=== PATIENT | female | born 1965 | race African-American/Black ===

== ENCOUNTER 2017-03-03 18:52 | Emergency (ER) | payer MEDICAID, OTHER ==
[~2017-03-03] VITALS: Ht 165.1 cm; Wt 69.0 kg
[2017-03-03] MEDS ORDERED: ONDANSETRON HCL 4MG/2ML VIAL IV STA (19:43)
[2017-03-03] MEDS ORDERED: MORPHINE SULFATE 4 MG/ML CPJ (NOT FOR IM USE) IV STA (19:43)
[2017-03-03] MEDS ORDERED: SODIUM CHLORIDE 0.9% 1,000 ML IV ONE (19:43)
[2017-03-03 20:18] LABS: BASOPHILS % 0.9 % (0.0-2.0); EOSINOPHILS % 0.1 % (0.0-5.0); HEMATOCRIT. 35.8 % (36.0-48.0); HEMOGLOBIN. 12.7 g/dL (12.0-16.0); LYMPHOCYTES % 14.7 % (20.0-50.0); MEAN CORPUSCULAR VOLUME 84.5 fL (81.0-99.0); MEAN PLATELET VOLUME 6.7 fl (7.4-10.4); MONOCYTES % 4.6 % (2.0-8.0); NEUTROPHILS % 79.7 % (40.0-76.0); PLATELET 352 x1000/uL (130-400); RED BLOOD CELL COUNT 4.24 mill/uL (4.2-5.4); RED CELL DISTRIBUTION WIDTH 12.9 % (11.6-14.6)
[2017-03-03 20:23] LABS: CHLORIDE 106 mEq/L (98-107)
[2017-03-03 20:27] LABS: CARBON DIOXIDE 21 mEq/L (21-32); INR 1.1; PROTHROMBIN TIME 11.7 sec (9.4-11.6)
[2017-03-03 20:32] LABS: HCG SCREEN NEGATIVE
[2017-03-03 21:29] LABS: CLARITY URINE TURBID (CLEAR); COLOR URINE YELLOW (YELLOW); GLUCOSE URINE NEGATIVE (NEGATIVE); KETONES URINE 1+ (NEGATIVE); LEUKOCYTE ESTERASE URINE TRACE (NEGATIVE); NITRITE URINE NEGATIVE (NEGATIVE); OCCULT BLOOD URINE 3+ (NEGATIVE); PH URINE >=9.0 (4.5-8.0); PROTEIN URINE 3+ (NEGATIVE); SPECIFIC GRAVITY URINE 1.021 (1.005-1.030)
[2017-03-03] MEDS ORDERED: CEFTRIAXONE 1 G PREMIX 50 ML IV ONE (22:00)
[2017-03-03] MEDS ORDERED: ONDANSETRON HCL 4MG/2ML VIAL IV ONE (22:15)
[2017-03-03] MEDS ORDERED: KETOROLAC 30MG/ML VIAL IV ONE (22:45)
[2017-03-04] MEDS ORDERED: METOCLOPRAMIDE HCL 10MG/2ML VIAL IV ONE (00:30)
[2017-03-04 00:44] VITALS: BP 152/82
== END 2017-03-04 01:29 | disposition home or self-care (01) ==
LOC: ER 19:48
DX: N39.0 Urinary tract infection, site not specified (principal)
CPT/HCPCS: 36415; 74176; 80053; 81001; 83690; 84703; 85025; 85610; 93005; 96361; 96365; 96375; 99285; J0696; J1885; J2270; J2405; J2765; J7030; Z7610

== ENCOUNTER 2017-03-05 03:07 | Inpatient (IN) | payer OTHER, MEDICAID ==
[~2017-03-05] VITALS: Ht 154.9 cm; Wt 65.8 kg
[2017-03-05] MEDS ORDERED: SODIUM CHLORIDE 0.9% 1,000 ML IV ONE (07:10)
[2017-03-05] MEDS ORDERED: ONDANSETRON HCL 4MG/2ML VIAL IV STA (07:10)
[2017-03-05] MEDS ORDERED: KETOROLAC 30MG/ML VIAL IV STA (07:10)
[2017-03-05] MEDS ORDERED: FAMOTIDINE 20MG/2ML VIAL IV STA (07:10)
[2017-03-05 07:29] LABS: BASOPHILS % 0.2 % (0.0-2.0); HEMATOCRIT. 33.6 % (36.0-48.0); HEMOGLOBIN. 12.1 g/dL (12.0-16.0); MEAN CORPUSCULAR HEMOGLOBIN 29.7 pg (28.0-32.0); MEAN CORPUSCULAR VOLUME 82.7 fL (81.0-99.0); MEAN PLATELET VOLUME 6.8 fl (7.4-10.4); MONOCYTES % 9.6 % (2.0-8.0); NEUTROPHILS % 78.2 % (40.0-76.0); PLATELET 294 x1000/uL (130-400); RED BLOOD CELL COUNT 4.06 mill/uL (4.2-5.4); RED CELL DISTRIBUTION WIDTH 12.9 % (11.6-14.6)
[2017-03-05 07:34] LABS: INR 1.2
[2017-03-05 07:52] LABS: CARBON DIOXIDE 28 mEq/L (21-32); CHLORIDE 99 mEq/L (98-107)
[2017-03-05] MEDS ORDERED: MORPHINE SULFATE 4 MG/ML CPJ (NOT FOR IM USE) IV ONE (08:45)
[2017-03-05 09:14] LABS: CLARITY URINE CLOUDY (CLEAR); COLOR URINE DARK YELLOW (YELLOW); GLUCOSE URINE NEGATIVE (NEGATIVE); KETONES URINE TRACE (NEGATIVE); LEUKOCYTE ESTERASE URINE TRACE (NEGATIVE); NITRITE URINE NEGATIVE (NEGATIVE); OCCULT BLOOD URINE 3+ (NEGATIVE); PROTEIN URINE 4+ (NEGATIVE); SPECIFIC GRAVITY URINE 1.027 (1.005-1.030)
[2017-03-05 09:22] LABS: HCG SCREEN NEGATIVE
[2017-03-05 09:35] LABS: *AMPHETAMINES SCREEN URINE NEGATIVE (NEGATIVE); *BARBITURATES SCREEN URINE NEGATIVE (NEGATIVE); *BENZODIAZEPINES SCREEN URINE NEGATIVE (NEGATIVE); *COCAINE SCREEN URINE NEGATIVE (NEGATIVE); METHADONE URINE SCREEN NEGATIVE (NEGATIVE); PHENCYCLIDINE URINE SCREEN NEGATIVE (NEGATIVE)
[2017-03-05] MEDS ORDERED: SODIUM CHLORIDE 0.9% 1,000 ML IV SCH (09:35)
[2017-03-05 09:39] LABS: CANNABINOID URINE SCREEN PRESUMTIVE POSITIVE (NEGATIVE); OPIATES URINE SCREEN PRESUMTIVE POSITIVE (NEGATIVE)
[2017-03-05] MEDS ORDERED: KCL 10MEQ/50ML PREMIX 100 ML IV SCH (09:45)
[2017-03-05] MEDS ORDERED: ONDANSETRON HCL 4MG/2ML VIAL IV PRN (11:30)
[2017-03-05] MEDS ORDERED: CLONIDINE 0.1MG TABLET PO PRN (11:30)
[2017-03-05] MEDS ORDERED: HYDROCODONE/ACETAMINOPHEN 5/325MG TABLET PO PRN (11:30)
[2017-03-05] MEDS ORDERED: ACETAMINOPHEN 325MG TABLET PO PRN (11:30)
[2017-03-05] MEDS ORDERED: IPRATROPIUM/ALBUTEROL 0.5-3(2.5)MG/3ML NEB INH PRN (11:30)
[2017-03-05 12:00] VITALS: BP 149/90
[2017-03-05 14:23] VITALS: BP 149/90
[2017-03-05 20:00] VITALS: BP 126/69
[2017-03-05] MEDS ORDERED: ENOXAPARIN 40MG/0.4ML SYR SUBCUT SCH (22:00)
[2017-03-06] VITALS: BP 116/64
[2017-03-06 04:15] VITALS: BP 125/67
[2017-03-06 07:07] LABS: BASOPHILS % 0.4 % (0.0-2.0); EOSINOPHILS % 0.4 % (0.0-5.0); HEMATOCRIT. 33.1 % (36.0-48.0); HEMOGLOBIN. 11.4 g/dL (12.0-16.0); LYMPHOCYTES % 34.6 % (20.0-50.0); MEAN CORPUSCULAR HEMOGLOBIN 29.5 pg (28.0-32.0); MEAN CORPUSCULAR VOLUME 85.3 fL (81.0-99.0); MEAN PLATELET VOLUME 7.1 fl (7.4-10.4); MONOCYTES % 11.5 % (2.0-8.0); NEUTROPHILS % 53.1 % (40.0-76.0); PLATELET 272 x1000/uL (130-400); RED BLOOD CELL COUNT 3.87 mill/uL (4.2-5.4)
[2017-03-06 07:45] LABS: CARBON DIOXIDE 29 mEq/L (21-32); CHLORIDE 102 mEq/L (98-107); HDL CHOLESTEROL 34 mg/dL (40-59); LDL CHOLESTEROL 101 mg/dL (5-100)
[2017-03-06 08:00] VITALS: BP 129/71
[2017-03-06 11:39] VITALS: BP 122/67
[2017-03-06 16:00] VITALS: BP 121/79
[2017-03-06 17:15] VITALS: BP 121/79
[2017-03-06] MEDS ORDERED: POTASSIUM CHLORIDE 20MEQ TABLET SR PO NR (17:15)
== END 2017-03-06 17:30 | disposition home or self-care (01) | DRG 249 ==
LOC: ER 03:07 → 6WST 09:20 → EDBEDREQSVC 09:44 → ENRESERV 09:58
PROVIDERS: ADMIT Internal Medicine; ATTEND Internal Medicine
DX: A08.4 Viral intestinal infection, unspecified (principal); E87.2 Acidosis; R10.9 Unspecified abdominal pain; E78.5 Hyperlipidemia, unspecified; R00.1 Bradycardia, unspecified; E87.6 Hypokalemia; F17.210 Nicotine dependence, cigarettes, uncomplicated; F12.90 Cannabis use, unspecified, uncomplicated; D72.829 Elevated white blood cell count, unspecified; R11.2 Nausea with vomiting, unspecified
CPT/HCPCS: 36415; 74022; 76705; 80053; 80061; 80305; 81001; 81025; 83605; 83690; 83735; 84443; 84703; 85025; 85610; 87040; 87086; 93005; 93306; 93970; 96361; 96374; 96375; 99285; J1650; J1885; J2270; J2405; J3480; J3490; J7030; J7050

== ENCOUNTER 2017-09-14 19:55 | Emergency (ER) | payer OTHER, MEDICAID ==
[~2017-09-14] VITALS: Ht 154.9 cm; Wt 65.0 kg
[2017-09-14] MEDS ORDERED: ASPIRIN 81MG TABLET PO ONE ×2 (22:30→23:00)
[2017-09-14 22:38] LABS: BASOPHILS % 0.8 % (0.0-2.0); EOSINOPHILS % 0.4 % (0.0-5.0); HEMATOCRIT. 35.9 % (36.0-48.0); HEMOGLOBIN. 12.7 g/dL (12.0-16.0); LYMPHOCYTES % 16.9 % (20.0-50.0); MEAN CORPUSCULAR HEMOGLOBIN 30.4 pg (28.0-32.0); MEAN CORPUSCULAR VOLUME 85.7 fL (81.0-99.0); MEAN PLATELET VOLUME 6.5 fl (7.4-10.4); MONOCYTES % 7.3 % (2.0-8.0); NEUTROPHILS % 74.6 % (40.0-76.0); PLATELET 344 x1000/uL (130-400); RED BLOOD CELL COUNT 4.18 mill/uL (4.2-5.4); RED CELL DISTRIBUTION WIDTH 12.8 % (11.6-14.6)
[2017-09-14 22:45] LABS: INR 1.1; PROTHROMBIN TIME 11.2 sec (9.4-11.6)
[2017-09-14 22:48] LABS: CHLORIDE 109 mEq/L (98-107); ETHANOL BLOOD < 10 mg/dL
[2017-09-14] MEDS ORDERED: NITROGLYCERIN 0.4MG TABLET SL SL ONE (23:00)
[2017-09-14] MEDS ORDERED: VISCOUS LIDOCAINE 2% 15 ML UDC MM NR (23:46)
[2017-09-15] MEDS ORDERED: MAGNESIUM/ALUMINUM HYDROXIDE/SIMETHICONE 30ML UDC PO NR
[2017-09-15 01:55] VITALS: BP 122/71
== END 2017-09-15 01:55 | disposition home or self-care (01) ==
LOC: ER 20:56
DX: R07.9 Chest pain, unspecified (principal); F17.200 Nicotine dependence, unspecified, uncomplicated; F14.10 Cocaine abuse, uncomplicated; Z79.82 Long term (current) use of aspirin
CPT/HCPCS: 36415; 71045; 80053; 83690; 83880; 84484; 85025; 85379; 85610; 99285; G0482; Z7610

== ENCOUNTER 2018-02-20 22:49 | Emergency (ER) | payer OTHER, MEDICAID ==
[~2018-02-20] VITALS: Ht 154.9 cm; Wt 61.0 kg
[2018-02-20] MEDS ORDERED: ONDANSETRON HCL 4MG/2ML VIAL IV STA (23:38)
[2018-02-20] MEDS ORDERED: MORPHINE SULFATE 4 MG/ML CPJ (NOT FOR IM USE) IV STA (23:38)
[2018-02-20] MEDS ORDERED: ASPIRIN 81MG TABLET PO ONE (23:45)
[2018-02-21 00:14] LABS: BASOPHILS % 0.6 % (0.0-2.0); EOSINOPHILS % 1.2 % (0.0-5.0); HEMATOCRIT. 33.3 % (36.0-48.0); HEMOGLOBIN. 11.8 g/dL (12.0-16.0); LYMPHOCYTES % 32.4 % (20.0-50.0); MEAN CORPUSCULAR HEMOGLOBIN 30.6 pg (28.0-32.0); MEAN CORPUSCULAR VOLUME 86.6 fL (81.0-99.0); MEAN PLATELET VOLUME 6.7 fl (7.4-10.4); MONOCYTES % 9.6 % (2.0-8.0); NEUTROPHILS % 56.2 % (40.0-76.0); PLATELET 290 x1000/uL (130-400); RED BLOOD CELL COUNT 3.84 mill/uL (4.2-5.4); RED CELL DISTRIBUTION WIDTH 13.2 % (11.6-14.6)
[2018-02-21 00:21] LABS: CHLORIDE 109 mEq/L (98-107)
[2018-02-21 00:25] LABS: ETHANOL BLOOD < 10 mg/dL
[2018-02-21 00:26] LABS: HCG SCREEN NEGATIVE
[2018-02-21 00:30] LABS: D-DIMER 0.2 mg/L FEU (<0.50); INR 1.1; PARTIAL THROMBOPLASTIN TIME 26.1 sec (23.4-31.0); PROTHROMBIN TIME 11.3 sec (9.1-11.1)
[2018-02-21 01:06] LABS: CLARITY URINE CLEAR (CLEAR); COLOR URINE YELLOW (YELLOW); KETONES URINE NEGATIVE (NEGATIVE); LEUKOCYTE ESTERASE URINE NEGATIVE (NEGATIVE); NITRITE URINE NEGATIVE (NEGATIVE); OCCULT BLOOD URINE 2+ (NEGATIVE); PH URINE 5.5 (4.5-8.0); PROTEIN URINE NEGATIVE (NEGATIVE); SPECIFIC GRAVITY URINE 1.002 (1.005-1.030); UROBILINOGEN URINE 0.2 E.U./dL (0.2-1.0)
[2018-02-21 01:34] LABS: *AMPHETAMINES SCREEN URINE NEGATIVE (NEGATIVE); *BARBITURATES SCREEN URINE NEGATIVE (NEGATIVE); *BENZODIAZEPINES SCREEN URINE NEGATIVE (NEGATIVE); CANNABINOID URINE SCREEN PRESUMTIVE POSITIVE (NEGATIVE); METHADONE URINE SCREEN NEGATIVE (NEGATIVE); OPIATES URINE SCREEN NEGATIVE (NEGATIVE); PHENCYCLIDINE URINE SCREEN NEGATIVE (NEGATIVE)
[2018-02-21 01:35] LABS: *COCAINE SCREEN URINE NEGATIVE (NEGATIVE)
[2018-02-21 02:17] VITALS: BP 134/72
== END 2018-02-21 02:22 | disposition home or self-care (01) ==
LOC: ER 22:49 → CANBEDREQ 02-21 07:17
DX: R07.89 Other chest pain (principal); K21.9 Gastro-esophageal reflux disease without esophagitis; F17.200 Nicotine dependence, unspecified, uncomplicated; I20.9 Angina pectoris, unspecified
CPT/HCPCS: 36415; 71045; 80053; 80305; 81003; 83690; 83880; 84484; 84703; 85025; 85379; 85610; 85730; 93005; 96374; 96375; 99285; 99406; C1893; G0482; J2270; J2405; Z7610

== ENCOUNTER 2018-08-13 11:42 | Inpatient (IN) | payer MEDICAID ==
[~2018-08-13] VITALS: Ht 154.9 cm; Wt 61.2 kg
[~2018-08-13 11:42] MED LIST: ALBU18HF2 IH; ASPI-1159 MT; FAMO-135 MT; FLUT15.88 BOTHNSTRLS; IBUP-2029 MT; NAPR-681 MT
[2018-08-13] MEDS ORDERED: NITROGLYCERIN 0.4MG TABLET SL SL PRN (15:45)
[2018-08-13] MEDS ORDERED: ASPIRIN 81MG TABLET PO ONE (15:45)
[2018-08-13 16:18] LABS: BASOPHILS % 0.7 % (0.0-2.0); CHLORIDE 106 mEq/L (98-107); EOSINOPHILS % 0.6 % (0.0-5.0); HEMATOCRIT. 36.1 % (36.0-48.0); HEMOGLOBIN. 12.6 g/dL (12.0-16.0); LYMPHOCYTES % 35.5 % (20.0-50.0); MEAN CORPUSCULAR HEMOGLOBIN 30.3 pg (28.0-32.0); MEAN CORPUSCULAR VOLUME 87.2 fL (81.0-99.0); MEAN PLATELET VOLUME 7.1 fl (7.4-10.4); MONOCYTES % 8.3 % (2.0-8.0); NEUTROPHILS % 54.9 % (40.0-76.0); PLATELET 320 x1000/uL (130-400); RED BLOOD CELL COUNT 4.14 mill/uL (4.2-5.4); RED CELL DISTRIBUTION WIDTH 13.1 % (11.6-14.6)
[2018-08-13 16:23] LABS: D-DIMER 0.32 mg/L FEU (<0.50); INR 1.1; PARTIAL THROMBOPLASTIN TIME 25.7 sec (23.4-31.0); PROTHROMBIN TIME 11.4 sec (9.1-11.1)
[2018-08-13 16:30] LABS: HCG SCREEN NEGATIVE
[2018-08-13] MEDS ORDERED: POTASSIUM CHLORIDE 20MEQ TABLET SR PO ONE (17:00)
[2018-08-13] MEDS ORDERED: IPRATROPIUM/ALBUTEROL 0.5-3(2.5)MG/3ML NEB INH PRN (18:15)
[2018-08-13] MEDS ORDERED: DOCUSATE SODIUM 100MG CAPSULE PO PRN (18:15)
[2018-08-13] MEDS ORDERED: HYDROCODONE/ACETAMINOPHEN 5/325MG TABLET PO PRN (18:15)
[2018-08-13] MEDS ORDERED: ONDANSETRON HCL 4MG/2ML INJ IV PRN (18:15)
[2018-08-13] MEDS ORDERED: CLONIDINE 0.1MG TABLET PO PRN (18:15)
[2018-08-13] MEDS ORDERED: ACETAMINOPHEN 325MG TABLET PO PRN (18:15)
[2018-08-13 19:34] LABS: CREATINE KINASE 198 IU/L (26-192)
[2018-08-13 19:35] LABS: CREATINE KINASE MB FRACTION < 1.0 ng/mL (0.5-3.6)
[2018-08-13 19:44] LABS: CLARITY URINE CLEAR (CLEAR); COLOR URINE YELLOW (YELLOW); KETONES URINE NEGATIVE (NEGATIVE); LEUKOCYTE ESTERASE URINE NEGATIVE (NEGATIVE); NITRITE URINE NEGATIVE (NEGATIVE); OCCULT BLOOD URINE 2+ (NEGATIVE); PH URINE 6.5 (4.5-8.0); PROTEIN URINE 1+ (NEGATIVE); SPECIFIC GRAVITY URINE 1.005 (1.005-1.030)
[2018-08-13 20:01] LABS: METHADONE URINE SCREEN NEGATIVE (NEGATIVE)
[2018-08-13 20:02] LABS: *AMPHETAMINES SCREEN URINE NEGATIVE (NEGATIVE); *BARBITURATES SCREEN URINE NEGATIVE (NEGATIVE); *BENZODIAZEPINES SCREEN URINE NEGATIVE (NEGATIVE); *COCAINE SCREEN URINE NEGATIVE (NEGATIVE); CANNABINOID URINE SCREEN PRESUMTIVE POSITIVE (NEGATIVE); OPIATES URINE SCREEN NEGATIVE (NEGATIVE); PHENCYCLIDINE URINE SCREEN NEGATIVE (NEGATIVE)
[2018-08-14 04:50] VITALS: BP 143/88
[2018-08-14 05:30] VITALS: BP 143/88
[2018-08-14] MEDS ORDERED: ATOR20TA65 PO (05:36)
[2018-08-14] MEDS ORDERED: LORA10TA7 PO (05:37)
[2018-08-14] MEDS ORDERED: ACET-2853 PO (05:39)
[2018-08-14] MEDS ORDERED: NITR0.4T49 SL (05:40)
[2018-08-14 08:00] VITALS: BP 137/89
[2018-08-14] MEDS ORDERED: FERROUS SULFATE 325MG TABLET PO SCH (09:00)
[2018-08-14] MEDS ORDERED: REGADENOSON 0.4 MG/5 ML IV NR (09:30)
[2018-08-14] MEDS ORDERED: LORATADINE 10MG TABLET PO PRN (10:15)
[2018-08-14] MEDS ORDERED: ASPIRIN 81MG TABLET PO SCH (10:45)
[2018-08-14] MEDS ORDERED: PANTOPRAZOLE SODIUM 40 MG/VIAL IV SCH (10:45)
[2018-08-14] MEDS ORDERED: ATORVASTATIN CALCIUM 20MG TABLET PO SCH (10:45)
[2018-08-14 12:00] VITALS: BP 153/84
[2018-08-14 14:27] LABS: BASOPHILS % 0.6 % (0.0-2.0); EOSINOPHILS % 1.6 % (0.0-5.0); HEMATOCRIT. 35.2 % (36.0-48.0); HEMOGLOBIN. 12.2 g/dL (12.0-16.0); LYMPHOCYTES % 39.9 % (20.0-50.0); MEAN CORPUSCULAR HEMOGLOBIN 30.7 pg (28.0-32.0); MEAN CORPUSCULAR VOLUME 88.3 fL (81.0-99.0); MEAN PLATELET VOLUME 6.9 fl (7.4-10.4); MONOCYTES % 9.9 % (2.0-8.0); PLATELET 302 x1000/uL (130-400); RED BLOOD CELL COUNT 3.98 mill/uL (4.2-5.4); RED CELL DISTRIBUTION WIDTH 13.6 % (11.6-14.6)
[2018-08-14 14:35] LABS: CHLORIDE 109 mEq/L (98-107)
[2018-08-14 14:45] LABS: T4 FREE 0.82 ng/dL (0.76-1.46)
[2018-08-14] MEDS ORDERED: PANT40TA4 MT (15:10)
[2018-08-14] MEDS ORDERED: FERR325T6 MT (15:10)
[2018-08-14] MEDS ORDERED: POTASSIUM CHLORIDE 20MEQ TABLET SR PO NR (15:15)
[2018-08-14 17:56] VITALS: BP 142/78
== END 2018-08-14 18:45 | disposition home or self-care (01) | DRG 243 ==
LOC: ER 15:16 → 5WST 17:20 → EDBEDREQ 17:22 → EDBEDREQTM 17:22 → EDBEDREQ 17:25 → ENRESERV 08-14 04:08
PROVIDERS: ADMIT Internal Medicine; ATTEND Internal Medicine
DX: K21.9 Gastro-esophageal reflux disease without esophagitis (principal); E78.5 Hyperlipidemia, unspecified; F12.90 Cannabis use, unspecified, uncomplicated; I10 Essential (primary) hypertension; R80.9 Proteinuria, unspecified; F17.210 Nicotine dependence, cigarettes, uncomplicated; Z79.82 Long term (current) use of aspirin; Z82.49 Family history of ischemic heart disease and other diseases of the circulatory system; Z79.899 Other long term (current) drug therapy; Z71.6 Tobacco abuse counseling
CPT/HCPCS: 36415; 71045; 80048; 80061; 80305; 82550; 82553; 83036; 83880; 84439; 84443; 84484; 84703; 85379; 93005; 93306; 93970; 99285; C9113

== ENCOUNTER 2018-10-29 20:54 | Inpatient (IN) | payer MEDICAID ==
[~2018-10-29] VITALS: Ht 157.5 cm; Wt 62.6 kg
[~2018-10-29 20:54] MED LIST changes: +ACET-2853 PO; -ALBU18HF2 IH; +ATOR20TA65 PO; -FAMO-135 MT; +FERR325T6 MT; -FLUT15.88 BOTHNSTRLS; -IBUP-2029 MT; +LORA10TA7 PO; -NAPR-681 MT; +NITR0.4T49 SL; +PANT40TA4 MT
[2018-10-29] MEDS ORDERED: ASPIRIN 325MG EC TABLET PO ONE (21:45)
[2018-10-29] MEDS ORDERED: NITROGLYCERIN OINT 1GM/INCH UDPKT TD ONE (21:45)
[2018-10-29 22:45] LABS: CHLORIDE 111 mEq/L (98-107)
[2018-10-29 22:46] LABS: INR 1.1; PROTHROMBIN TIME 11.4 sec (9.6-11.0)
[2018-10-29 22:47] LABS: BASOPHILS % 0.7 % (0.0-2.0); EOSINOPHILS % 1.4 % (0.0-5.0); HCG SCREEN NEGATIVE; HEMATOCRIT. 35.9 % (36.0-48.0); HEMOGLOBIN. 12.6 g/dL (12.0-16.0); LYMPHOCYTES % 30.8 % (20.0-50.0); MEAN CORPUSCULAR HEMOGLOBIN 30.6 pg (28.0-32.0); MONOCYTES % 9.2 % (2.0-8.0); NEUTROPHILS % 57.9 % (40.0-76.0); PLATELET 303 x1000/uL (130-400); RED BLOOD CELL COUNT 4.13 mill/uL (4.2-5.4)
[2018-10-30 03:30] VITALS: BP_SYST 130; BP_SYST 159; BP_DIAS 70; BP_DIAS 84
[2018-10-30] MEDS ORDERED: MORPHINE SULFATE 4 MG/ML CPJ (NOT FOR IM USE) IV PRN (04:00)
[2018-10-30] MEDS ORDERED: LORATADINE 10MG TABLET PO PRN (04:15)
[2018-10-30] MEDS ORDERED: ACETAMINOPHEN 325MG TABLET PO PRN (04:15)
[2018-10-30] MEDS: NITROGLYCERIN OINT 1GM/INCH UDPKT TD SCH ×2 (05:34→16:49)
[2018-10-30] MEDS ORDERED: PANTOPRAZOLE 40MG DR TABLET PO SCH (06:45)
[2018-10-30 08:00] VITALS: BP 123/74
[2018-10-30] MEDS: FERROUS SULFATE 325MG TABLET PO SCH ×2 (08:56→13:04)
[2018-10-30] MEDS ORDERED: ASPIRIN 325MG EC TABLET PO SCH (09:00)
[2018-10-30] MEDS ORDERED: ENOXAPARIN 60MG/0.6ML SYR SUBCUT SCH (09:00)
[2018-10-30] MEDS ORDERED: METOPROLOL TARTRATE 50MG TABLET PO SCH (09:00)
[2018-10-30] MEDS ORDERED: CLOPIDOGREL 75MG TABLET PO SCH (09:00)
[2018-10-30 10:02] LABS: LDL CHOLESTEROL 61 mg/dL (5-100)
[2018-10-30 10:03] LABS: HDL CHOLESTEROL 61 mg/dL (40-59)
[2018-10-30 10:04] LABS: T4 FREE 0.75 ng/dL (0.76-1.46)
[2018-10-30 12:00] VITALS: BP 131/77
[2018-10-30] MEDS ORDERED: LIDOCAINE HCL 1% 20ML VIAL (Pyxis) INJ ONE (14:11)
[2018-10-30] MEDS ORDERED: SODIUM BICARBONATE 4% (2.4MEQ) 5ML VIAL IV ONE (14:11)
[2018-10-30] MEDS ORDERED: IOHEXOL-350 100 ML BOTTLE ONE (15:16)
[2018-10-30 16:00] VITALS: BP 146/81
[2018-10-30 18:50] VITALS: BP 146/81
[2018-10-30 18:51] LABS: CREATINE KINASE 114 IU/L (26-192)
[2018-10-30 18:52] LABS: CREATINE KINASE MB FRACTION < 1.0 ng/mL (0.5-3.6)
[2018-10-30] MEDS ORDERED: ATORVASTATIN CALCIUM 20MG TABLET PO SCH (21:00)
== END 2018-10-30 19:00 | disposition home or self-care (01) | DRG 203 ==
LOC: ER 20:54 → EDBEDREQ 10-30 00:25 → EDBEDREQTM 10-30 00:25 → 5WST 10-30 03:15
PROVIDERS: ADMIT Internal Medicine; ATTEND Internal Medicine
PROC: 02HV33Z Insertion of Infusion Device into Superior Vena Cava, Percutaneous Approach (ICD-10-PCS; principal; 2018-10-30)
PROC: B548ZZA Ultrasonography of Superior Vena Cava, Guidance (ICD-10-PCS; 2018-10-30)
PROC: B5181ZA Fluoroscopy of Superior Vena Cava using Low Osmolar Contrast, Guidance (ICD-10-PCS; 2018-10-30)
DX: R07.9 Chest pain, unspecified (principal); E78.00 Pure hypercholesterolemia, unspecified; E78.5 Hyperlipidemia, unspecified; F12.90 Cannabis use, unspecified, uncomplicated; F17.210 Nicotine dependence, cigarettes, uncomplicated; Z82.49 Family history of ischemic heart disease and other diseases of the circulatory system; Z91.19 Patient's noncompliance with other medical treatment and regimen; Z79.82 Long term (current) use of aspirin; Z71.6 Tobacco abuse counseling
CPT/HCPCS: 36415; 36569; 36573; 71045; 71275; 80061; 82550; 82553; 83036; 83880; 84439; 84443; 84484; 84703; 85379; 93005; 93306; 93970; 99285; 99406; C1725; J1650; J3490; Q9967

== ENCOUNTER 2018-11-02 23:24 | Emergency (ER) | payer MEDICAID ==
[~2018-11-02] VITALS: Ht 152.4 cm; Wt 63.0 kg
[2018-11-03] MEDS ORDERED: KETOROLAC 60MG/2ML VIAL IM STA (01:09)
[2018-11-03 01:30] LABS: BASOPHILS % 0.7 % (0.0-2.0); CHLORIDE 110 mEq/L (98-107); EOSINOPHILS % 1.2 % (0.0-5.0); HEMATOCRIT. 35.7 % (36.0-48.0); HEMOGLOBIN. 12.5 g/dL (12.0-16.0); LYMPHOCYTES % 27.1 % (20.0-50.0); MEAN CORPUSCULAR HEMOGLOBIN 30.9 pg (28.0-32.0); MEAN PLATELET VOLUME 7.1 fl (7.4-10.4); MONOCYTES % 8.6 % (2.0-8.0); NEUTROPHILS % 62.4 % (40.0-76.0); PLATELET 280 x1000/uL (130-400); RED BLOOD CELL COUNT 4.06 mill/uL (4.2-5.4); RED CELL DISTRIBUTION WIDTH 13.2 % (11.6-14.6)
[2018-11-03 06:11] VITALS: BP 116/72
== END 2018-11-03 06:12 | disposition home or self-care (01) ==
LOC: ER 23:24
DX: R07.89 Other chest pain (principal); E78.00 Pure hypercholesterolemia, unspecified; F12.10 Cannabis abuse, uncomplicated; F17.290 Nicotine dependence, other tobacco product, uncomplicated; Z79.899 Other long term (current) drug therapy; Z79.82 Long term (current) use of aspirin
CPT/HCPCS: 36415; 80053; 84484; 85025; 93005; 96372; 99284; 99406; J1885; Z7610

== ENCOUNTER 2019-01-07 03:42 | Emergency (ER) | payer MEDICAID ==
[~2019-01-07] VITALS: Ht 154.9 cm; Wt 61.0 kg
[~2019-01-07 03:42] MED LIST changes: -ASPI-1159 MT; +ASPI-1393 MT
[2019-01-07] MEDS ORDERED: VISCOUS LIDOCAINE 2% 15 ML UDC PO STA (06:24)
[2019-01-07] MEDS ORDERED: FAMOTIDINE 20MG/2ML VIAL IV STA (06:24)
[2019-01-07] MEDS ORDERED: MAGNESIUM/ALUMINUM HYDROXIDE/SIMETHICONE 30ML UDC PO STA (06:24)
[2019-01-07] MEDS ORDERED: ONDANSETRON HCL 4MG/2ML INJ IV STA (06:24)
[2019-01-07] MEDS ORDERED: SODIUM CHLORIDE 0.9% 1,000 ML IV ONE (06:24)
[2019-01-07] MEDS ORDERED: MORPHINE SULFATE 4 MG/ML CPJ (NOT FOR IM USE) IV STA (06:24)
[2019-01-07 07:39] LABS: CLARITY URINE CLEAR (CLEAR); COLOR URINE YELLOW (YELLOW); KETONES URINE NEGATIVE (NEGATIVE); LEUKOCYTE ESTERASE URINE NEGATIVE (NEGATIVE); NITRITE URINE NEGATIVE (NEGATIVE); OCCULT BLOOD URINE 3+ (NEGATIVE); PH URINE 5.5 (4.5-8.0); PROTEIN URINE TRACE (NEGATIVE); SPECIFIC GRAVITY URINE 1.002 (1.005-1.030); UROBILINOGEN URINE 0.2 E.U./dL (0.2-1.0)
[2019-01-07 08:20] LABS: BASOPHILS % 0.7 % (0.0-2.0); HEMATOCRIT. 36.1 % (36.0-48.0); HEMOGLOBIN. 12.7 g/dL (12.0-16.0); LYMPHOCYTES % 30.6 % (20.0-50.0); MEAN CORPUSCULAR HEMOGLOBIN 30.9 pg (28.0-32.0); MEAN CORPUSCULAR VOLUME 87.9 fL (81.0-99.0); MONOCYTES % 7.3 % (2.0-8.0); NEUTROPHILS % 60.4 % (40.0-76.0); PLATELET 287 x1000/uL (130-400); RED BLOOD CELL COUNT 4.11 mill/uL (4.2-5.4); RED CELL DISTRIBUTION WIDTH 13.4 % (11.6-14.6)
[2019-01-07 08:23] LABS: CHLORIDE 109 mEq/L (98-107); INR 1.1; PROTHROMBIN TIME 11.2 sec (9.6-11.0)
[2019-01-07] MEDS ORDERED: POTASSIUM CHLORIDE 20MEQ TABLET SR PO ONE (08:45)
[2019-01-07] MEDS ORDERED: IOHEXOL-300 100 ML BOTTLE ONE ×2 (10:35→10:36)
[2019-01-07 13:23] VITALS: BP 130/82
== END 2019-01-07 13:33 | disposition home or self-care (01) ==
LOC: ER 03:42
DX: K29.70 Gastritis, unspecified, without bleeding (principal); E87.6 Hypokalemia; F17.290 Nicotine dependence, other tobacco product, uncomplicated; I10 Essential (primary) hypertension; E78.00 Pure hypercholesterolemia, unspecified; F12.10 Cannabis abuse, uncomplicated; Z79.899 Other long term (current) drug therapy; Z98.890 Other specified postprocedural states
CPT/HCPCS: 36415; 71045; 74177; 80053; 81003; 83605; 83690; 84484; 85025; 85610; 93005; 96374; 96375; 99284; 99406; J2270; J2405; J3490; J7030; Q9967; Z7610

== ENCOUNTER 2019-01-10 23:29 | Emergency (ER) | payer MEDICAID ==
[~2019-01-10] VITALS: Ht 152.4 cm; Wt 61.0 kg
[2019-01-11] MEDS ORDERED: ASPIRIN 81MG TABLET PO ONE (00:45)
[2019-01-11] MEDS ORDERED: NITROGLYCERIN 0.4MG TABLET SL SL PRN (00:45)
[2019-01-11 01:02] LABS: BASOPHILS % 1.3 % (0.0-2.0); EOSINOPHILS % 1.2 % (0.0-5.0); HEMATOCRIT. 33.7 % (36.0-48.0); HEMOGLOBIN. 12.1 g/dL (12.0-16.0); LYMPHOCYTES % 32.6 % (20.0-50.0); MEAN CORPUSCULAR HEMOGLOBIN 31.1 pg (28.0-32.0); MEAN CORPUSCULAR VOLUME 86.8 fL (81.0-99.0); MEAN PLATELET VOLUME 6.9 fl (7.4-10.4); MONOCYTES % 10.6 % (2.0-8.0); NEUTROPHILS % 54.3 % (40.0-76.0); PLATELET 290 x1000/uL (130-400); RED BLOOD CELL COUNT 3.88 mill/uL (4.2-5.4); RED CELL DISTRIBUTION WIDTH 12.9 % (11.6-14.6)
[2019-01-11 01:08] LABS: CHLORIDE 110 mEq/L (98-107)
[2019-01-11 04:56] VITALS: BP 150/83
== END 2019-01-11 05:07 | disposition left against medical advice (07) ==
LOC: ER 23:29 → EDBEDREQ 01-11 04:32 → EDBEDREQTM 01-11 04:32 → ER 01-11 05:07 → CANBEDREQ 01-11 05:30
DX: R07.89 Other chest pain (principal); I10 Essential (primary) hypertension; E78.00 Pure hypercholesterolemia, unspecified; F17.210 Nicotine dependence, cigarettes, uncomplicated; F12.10 Cannabis abuse, uncomplicated; Z91.14 Patient's other noncompliance with medication regimen
CPT/HCPCS: 36415; 71045; 83880; 84484; 93005; 99284

== ENCOUNTER 2019-01-31 15:33 | Emergency (ER) | payer MEDICAID ==
[~2019-01-31] VITALS: Ht 152.4 cm; Wt 85.0 kg
[2019-01-31] MEDS ORDERED: ACETAMINOPHEN WITH CODEINE 300/30MG TABLET PO ONE (16:30)
[2019-01-31 17:12] VITALS: BP 146/77
== END 2019-01-31 17:15 | disposition home or self-care (01) ==
LOC: ER 15:33
DX: M79.605 Pain in left leg (principal); M25.572 Pain in left ankle and joints of left foot; I10 Essential (primary) hypertension; F12.90 Cannabis use, unspecified, uncomplicated; F17.210 Nicotine dependence, cigarettes, uncomplicated
CPT/HCPCS: 73590; 73610; 99283

== ENCOUNTER 2019-03-10 03:22 | Emergency (ER) | payer MEDICAID ==
[~2019-03-10] VITALS: Ht 154.9 cm; Wt 63.0 kg
[2019-03-10 04:36] LABS: CLARITY URINE CLEAR (CLEAR); COLOR URINE YELLOW (YELLOW); KETONES URINE NEGATIVE (NEGATIVE); LEUKOCYTE ESTERASE URINE NEGATIVE (NEGATIVE); NITRITE URINE NEGATIVE (NEGATIVE); OCCULT BLOOD URINE 2+ (NEGATIVE); PROTEIN URINE TRACE (NEGATIVE); SPECIFIC GRAVITY URINE 1.004 (1.005-1.030); UROBILINOGEN URINE 0.2 E.U./dL (0.2-1.0)
[2019-03-10 04:54] LABS: CHLORIDE 113 mEq/L (98-107)
[2019-03-10 04:55] LABS: BASOPHILS % 0.8 % (0.0-2.0); EOSINOPHILS % 1.5 % (0.0-5.0); HEMATOCRIT. 33.4 % (36.0-48.0); HEMOGLOBIN. 11.7 g/dL (12.0-16.0); LYMPHOCYTES % 30.9 % (20.0-50.0); MEAN CORPUSCULAR HEMOGLOBIN 30.7 pg (28.0-32.0); MEAN CORPUSCULAR VOLUME 87.3 fL (81.0-99.0); MONOCYTES % 9.7 % (2.0-8.0); NEUTROPHILS % 57.1 % (40.0-76.0); PLATELET 275 x1000/uL (130-400); RED BLOOD CELL COUNT 3.82 mill/uL (4.2-5.4); RED CELL DISTRIBUTION WIDTH 13.1 % (11.6-14.6)
[2019-03-10] MEDS ORDERED: SODIUM CHLORIDE 0.9% 1,000 ML IV ONE (06:44)
[2019-03-10] MEDS ORDERED: MORPHINE SULFATE 4 MG/ML CPJ (NOT FOR IM USE) IV STA (06:44)
[2019-03-10] MEDS ORDERED: ONDANSETRON HCL 4MG/2ML INJ IV STA (06:44)
[2019-03-10] MEDS ORDERED: IOHEXOL-300 100 ML BOTTLE ONE (07:44)
[2019-03-10 08:53] LABS: BASOPHILS % 0.8 % (0.0-2.0); EOSINOPHILS % 1.4 % (0.0-5.0); HEMATOCRIT. 34.2 % (36.0-48.0); LYMPHOCYTES % 34.5 % (20.0-50.0); MEAN CORPUSCULAR HEMOGLOBIN 30.5 pg (28.0-32.0); MEAN CORPUSCULAR VOLUME 87.2 fL (81.0-99.0); MONOCYTES % 7.8 % (2.0-8.0); NEUTROPHILS % 55.5 % (40.0-76.0); PLATELET 273 x1000/uL (130-400); RED BLOOD CELL COUNT 3.92 mill/uL (4.2-5.4); RED CELL DISTRIBUTION WIDTH 13.3 % (11.6-14.6)
[2019-03-10 08:57] LABS: CHLORIDE 112 mEq/L (98-107); INR 1.1; PROTHROMBIN TIME 11.4 sec (9.6-11.0)
[2019-03-10 10:01] VITALS: BP 149/68
== END 2019-03-10 10:14 | disposition home or self-care (01) ==
LOC: ER 03:22
DX: K52.9 Noninfective gastroenteritis and colitis, unspecified (principal); E78.00 Pure hypercholesterolemia, unspecified; Z98.890 Other specified postprocedural states; Z79.82 Long term (current) use of aspirin
CPT/HCPCS: 36415; 71045; 74176; 74177; 80053; 81003; 81025; 83690; 84484; 85025; 85610; 93005; 96374; 96375; 99284; J2270; J2405; J7030; Q9967

== ENCOUNTER 2019-03-21 00:13 | Emergency (ER) | payer MEDICAID ==
[~2019-03-21] VITALS: Ht 154.9 cm; Wt 59.0 kg
[2019-03-21 01:41] VITALS: BP 119/80
== END 2019-03-21 01:42 | disposition home or self-care (01) ==
LOC: ER 00:13
DX: D17.22 Benign lipomatous neoplasm of skin and subcutaneous tissue of left arm (principal)
CPT/HCPCS: 99282

== ENCOUNTER 2019-04-20 22:55 | Emergency (ER) | payer MEDICAID ==
[~2019-04-20] VITALS: Ht 154.9 cm; Wt 59.0 kg
[2019-04-21] MEDS ORDERED: KETOROLAC 30MG/ML VIAL IV STA (02:05)
[2019-04-21 02:27] LABS: BASOPHILS % 0.8 % (0.0-2.0); EOSINOPHILS % 1.4 % (0.0-5.0); HEMATOCRIT. 34.9 % (36.0-48.0); HEMOGLOBIN. 12.2 g/dL (12.0-16.0); LYMPHOCYTES % 45.2 % (20.0-50.0); MEAN CORPUSCULAR HEMOGLOBIN 30.3 pg (28.0-32.0); MEAN CORPUSCULAR VOLUME 87.1 fL (81.0-99.0); MEAN PLATELET VOLUME 6.5 fl (7.4-10.4); MONOCYTES % 8.4 % (2.0-8.0); NEUTROPHILS % 44.2 % (40.0-76.0); PLATELET 281 x1000/uL (130-400); RED BLOOD CELL COUNT 4.01 mill/uL (4.2-5.4); RED CELL DISTRIBUTION WIDTH 13.4 % (11.6-14.6)
[2019-04-21 02:32] LABS: CHLORIDE 110 mEq/L (98-107)
[2019-04-21 05:00] VITALS: BP 134/64
== END 2019-04-21 05:52 | disposition home or self-care (01) ==
LOC: ER 22:55
DX: R07.89 Other chest pain (principal); E78.00 Pure hypercholesterolemia, unspecified; F17.210 Nicotine dependence, cigarettes, uncomplicated; F12.10 Cannabis abuse, uncomplicated; Z79.82 Long term (current) use of aspirin
CPT/HCPCS: 36415; 71045; 80053; 83880; 84484; 85025; 85379; 93005; 96374; 99284; J1885; Z7610

== ENCOUNTER 2019-05-21 17:58 | Emergency (ER) | payer MEDICAID ==
[~2019-05-21] VITALS: Ht 152.4 cm; Wt 59.0 kg
[2019-05-21 22:42] LABS: BASOPHILS % 0.4 % (0.0-2.0); EOSINOPHILS % 0.6 % (0.0-5.0); HEMATOCRIT. 36.2 % (36.0-48.0); HEMOGLOBIN. 12.6 g/dL (12.0-16.0); LYMPHOCYTES % 27.8 % (20.0-50.0); MEAN CORPUSCULAR HEMOGLOBIN 30.2 pg (28.0-32.0); MEAN CORPUSCULAR VOLUME 86.7 fL (81.0-99.0); MEAN PLATELET VOLUME 6.7 fl (7.4-10.4); MONOCYTES % 7.1 % (2.0-8.0); NEUTROPHILS % 64.1 % (40.0-76.0); PLATELET 275 x1000/uL (130-400); RED BLOOD CELL COUNT 4.18 mill/uL (4.2-5.4); RED CELL DISTRIBUTION WIDTH 13.8 % (11.6-14.6)
[2019-05-21 22:46] LABS: CHLORIDE 110 mEq/L (98-107)
[2019-05-22 00:15] VITALS: BP 125/75
== END 2019-05-22 05:10 | disposition home or self-care (01) ==
LOC: ER 17:58
DX: R07.89 Other chest pain (principal); R06.02 Shortness of breath; E78.00 Pure hypercholesterolemia, unspecified; F12.10 Cannabis abuse, uncomplicated; Z79.82 Long term (current) use of aspirin; Z79.899 Other long term (current) drug therapy
CPT/HCPCS: 36415; 71045; 80053; 83880; 84484; 85025; 93005; 99284; Z7610

== ENCOUNTER 2019-06-26 02:49 | Emergency (ER) | payer MEDICAID ==
[~2019-06-26] VITALS: Ht 154.9 cm; Wt 59.0 kg
[2019-06-26 04:42] LABS: BASOPHILS % 0.7 % (0.0-2.0); EOSINOPHILS % 1.8 % (0.0-5.0); HEMATOCRIT. 38.9 % (36.0-48.0); HEMOGLOBIN. 13.5 g/dL (12.0-16.0); LYMPHOCYTES % 33.9 % (20.0-50.0); MEAN CORPUSCULAR VOLUME 86.7 fL (81.0-99.0); MEAN PLATELET VOLUME 6.7 fl (7.4-10.4); MONOCYTES % 10.3 % (2.0-8.0); NEUTROPHILS % 53.3 % (40.0-76.0); PLATELET 344 x1000/uL (130-400); RED BLOOD CELL COUNT 4.48 mill/uL (4.2-5.4); RED CELL DISTRIBUTION WIDTH 13.5 % (11.6-14.6)
[2019-06-26 04:54] LABS: CHLORIDE 109 mEq/L (98-107)
[2019-06-26 06:24] VITALS: BP 157/72
== END 2019-06-26 06:27 | disposition home or self-care (01) ==
LOC: ER 02:49
DX: I20.9 Angina pectoris, unspecified (principal); Z79.899 Other long term (current) drug therapy; F12.10 Cannabis abuse, uncomplicated
CPT/HCPCS: 36415; 71045; 80053; 84484; 85025; 93005; 99284; Z7610

== ENCOUNTER 2019-07-28 15:49 | Emergency (ER) | payer MEDICAID ==
[~2019-07-28] VITALS: Ht 154.9 cm; Wt 60.3 kg
[~2019-07-28 15:49] MED LIST changes: -ACET-2853 PO; +ACET650T37 PO; -ASPI-1393 MT; +ASPI-1497 MT
[2019-07-28] MEDS ORDERED: ASPIRIN 81MG TABLET PO ONE (18:30)
[2019-07-28] MEDS ORDERED: ONDANSETRON 4MG ODT PO ONE (18:30)
[2019-07-28] MEDS ORDERED: MAGNESIUM/ALUMINUM HYDROXIDE/SIMETHICONE 30ML UDC PO ONE (19:15)
[2019-07-28] MEDS ORDERED: VISCOUS LIDOCAINE 2% 15 ML UDC PO ONE (19:15)
[2019-07-28 19:57] LABS: BASOPHILS % 0.7 % (0.0-2.0); EOSINOPHILS % 1.3 % (0.0-5.0); HEMATOCRIT. 37.9 % (36.0-48.0); HEMOGLOBIN. 13.1 g/dL (12.0-16.0); LYMPHOCYTES % 37.6 % (20.0-50.0); MEAN CORPUSCULAR HEMOGLOBIN 30.4 pg (28.0-32.0); MEAN CORPUSCULAR VOLUME 87.6 fL (81.0-99.0); MEAN PLATELET VOLUME 6.8 fl (7.4-10.4); NEUTROPHILS % 52.4 % (40.0-76.0); PLATELET 292 x1000/uL (130-400); RED BLOOD CELL COUNT 4.32 mill/uL (4.2-5.4); RED CELL DISTRIBUTION WIDTH 13.6 % (11.6-14.6)
[2019-07-28 20:01] LABS: CHLORIDE 109 mEq/L (98-107)
[2019-07-28 20:49] LABS: CLARITY URINE CLEAR (CLEAR); COLOR URINE YELLOW (YELLOW); KETONES URINE NEGATIVE (NEGATIVE); LEUKOCYTE ESTERASE URINE NEGATIVE (NEGATIVE); NITRITE URINE NEGATIVE (NEGATIVE); OCCULT BLOOD URINE 3+ (NEGATIVE); PROTEIN URINE 2+ (NEGATIVE); SPECIFIC GRAVITY URINE 1.007 (1.005-1.030); UROBILINOGEN URINE 0.2 E.U./dL (0.2-1.0)
[2019-07-29 07:40] VITALS: BP 150/94
== END 2019-07-29 07:48 | disposition left against medical advice (07) ==
LOC: ER 15:49 → CANBEDREQ 07-29 10:04
DX: R07.89 Other chest pain (principal); R06.02 Shortness of breath; E78.00 Pure hypercholesterolemia, unspecified; I10 Essential (primary) hypertension; F12.10 Cannabis abuse, uncomplicated; Z79.899 Other long term (current) drug therapy; Z79.82 Long term (current) use of aspirin
CPT/HCPCS: 36415; 71045; 80053; 81003; 81025; 83880; 84484; 85025; 93005; 99284; Q0162; Z7610

== ENCOUNTER 2020-01-05 20:03 | Emergency (ER) | payer MEDICAID ==
[~2020-01-05] VITALS: Ht 154.9 cm; Wt 59.0 kg
[2020-01-05] MEDS ORDERED: VISCOUS LIDOCAINE 2% 15 ML UDC PO ONE (20:45)
[2020-01-05] MEDS ORDERED: ASPIRIN 81MG TABLET PO ONE (20:45)
[2020-01-05] MEDS ORDERED: MAGNESIUM/ALUMINUM HYDROXIDE/SIMETHICONE 30ML UDC PO ONE (20:45)
[2020-01-05 21:44] LABS: CHLORIDE 107 mEq/L (98-107)
[2020-01-05 21:50] LABS: BASOPHILS % 0.5 % (0.0-2.0); EOSINOPHILS % 0.4 % (0.0-5.0); HEMATOCRIT. 34.6 % (36.0-48.0); HEMOGLOBIN. 12.1 g/dL (12.0-16.0); LYMPHOCYTES % 22.4 % (20.0-50.0); MEAN CORPUSCULAR HEMOGLOBIN 30.9 pg (28.0-32.0); MEAN CORPUSCULAR VOLUME 88.4 fL (81.0-99.0); MEAN PLATELET VOLUME 7.3 fl (7.4-10.4); MONOCYTES % 8.5 % (2.0-8.0); NEUTROPHILS % 68.2 % (40.0-76.0); PLATELET 345 x1000/uL (130-400); RED BLOOD CELL COUNT 3.92 mill/uL (4.2-5.4); RED CELL DISTRIBUTION WIDTH 13.3 % (11.6-14.6)
[2020-01-06 00:15] VITALS: BP 123/79
== END 2020-01-06 00:33 | disposition home or self-care (01) ==
LOC: ER 20:03
DX: R07.89 Other chest pain (principal); I10 Essential (primary) hypertension; F17.290 Nicotine dependence, other tobacco product, uncomplicated; Z79.82 Long term (current) use of aspirin; Z79.899 Other long term (current) drug therapy
CPT/HCPCS: 36415; 71045; 80053; 83880; 84484; 85025; 93005; 99285; Z7610